=== PATIENT | female | born 2000 | race Two or more races ===

== ENCOUNTER 2020-07-26 10:10 | Outpatient (REF) | payer OTHER, SELFPAY ==
[2020-07-27 11:30] LABS: BV Int Neg Control Negative (Negative); BV Int Pos Control Positive (Positive)
[2020-07-28 14:57] LABS: C. trachomatis RNA TMA NOT DETECTED (NOT DETECTED); N. gonorrhoeae RNA TMA NOT DETECTED (NOT DETECTED)
== END 2020-07-26 10:11 | disposition home or self-care (01) ==
LOC: HO.LAB 10:10
PROVIDERS: Visit Provider Advanced Practice Midwife
DX: Z12.4 Encounter for screening for malignant neoplasm of cervix (principal); Z30.431 Encounter for routine checking of intrauterine contraceptive device; Z20.2 Contact with and (suspected) exposure to infections with a predominantly sexual mode of transmission
CPT/HCPCS: 87480; 87491; 87510; 87591; 87660; 88141; 88142

== ENCOUNTER 2023-02-05 12:58 | Outpatient (REF) | payer OTHER, SELFPAY | END 2023-02-05 12:59 | disposition home or self-care (01) | LOC: HO.LAB 12:58 | PROVIDERS: Visit Provider Advanced Practice Midwife | DX: Z01.419 Encounter for gynecological examination (general) (routine) without abnormal findings (principal); R10.9 Unspecified abdominal pain; R10.2 Pelvic and perineal pain; Z97.5 Presence of (intrauterine) contraceptive device; Z20.2 Contact with and (suspected) exposure to infections with a predominantly sexual mode of transmission | CPT/HCPCS: 0353U; 87480; 87510; 87660 ==

== ENCOUNTER 2023-02-05 13:40 | Outpatient (REF) | payer OTHER, SELFPAY | END 2023-02-05 13:41 | disposition home or self-care (01) | LOC: HO.LNP 13:40 | PROVIDERS: Visit Provider Advanced Practice Midwife | DX: Z01.419 Encounter for gynecological examination (general) (routine) without abnormal findings (principal); R10.2 Pelvic and perineal pain; Z20.2 Contact with and (suspected) exposure to infections with a predominantly sexual mode of transmission | CPT/HCPCS: 88142 ==

== ENCOUNTER 2024-09-06 13:08 | Outpatient (REF) | payer OTHER, SELFPAY ==
--- OUTSIDE RECORDS SUMMARY | 2024-09-06 14:19 | XMS_ITS | Encounter Summary ---
Author Organization [facility] Address [address] [place], [place] [address] Phone Care Team Providers Care Emission Technician Name Role Phone Provider, Aditi LOPEZ Primary Care Provider [phone] Encounter Details Date Type Department Care Team (Late st Contact Info) Description 05/31/[address] [facility] [place] Family Medicine [address] [place] [address] Family Medicine, Physician [address] [place], [place] [phone] Social History Tobacco Use Types Packs/Day Years [...] on filedocumented in this encounter Care Teams Emission Technician Relationship Specialty Start Date End Date Provider, MD Aditi [address] [place] [phone] PCP - General Pediatrics 07/25/21 11/10/22 documented as of this encounter
--- OUTSIDE RECORDS SUMMARY | 2024-09-06 14:19 | XMS_ITS | Encounter Summary ---
Author Organization [facility] Address [address] [place] [address] Phone Care Team Providers Care Automation Architect Name Role Phone Provider, Aditi LOPEZ Primary Care Provider [phone] Encounter Details Date Type Department Care Team (Late st Contact Info) Description 02/15/2016 Documentation [facility] [place] Family Medicine [address] [place] [address] Family Medicine, Physician [address] [place], [place] [phone] Social History Tobacco Use Types Packs/Day Years [...] on filedocumented in this encounter Care Teams Automation Architect Relationship Specialty Start Date End Date Provider, MD Aditi [address] [place] [address] PCP - General Pediatrics 07/25/21 11/10/22 documented as of this encounter
--- OUTSIDE RECORDS SUMMARY | 2024-09-06 14:19 | XMS_ITS | Encounter Summary ---
Author Organization [facility] Address [address] [place], [place] [address] Phone Care Team Providers Care Cashier Office Name Role Phone Provider, Aditi LOPEZ Primary Care Provider [phone] Encounter Details Date Type Department Care Team (Late st Contact Info) Description 05/31/2012 Documentation [facility] [place] [address] [place] [address] Family Medicine, Physician [address] [place], [place] [phone] Social History Tobacco Use Types Packs/Day Years [...] on filedocumented in this encounter Care Teams Cashier Office Relationship Specialty Start Date End Date Provider, MD Aditi [address] [place] [phone] PCP - General Pediatrics 07/25/21 11/10/22 documented as of this encounter
--- OUTSIDE RECORDS SUMMARY | 2024-09-06 14:19 | XMS_ITS | Clinical Summary ---
Author Organization [facility] Address [address] [place] [address] Phone Care Team Providers Care It Network Architect Name Role Phone Unavailable Primary Care Provider [...] Heart disease, No family history of Sudden /[place] under age 55, No family history of [...] complete this topic Procedures * Due to [facility] law, this organization might not be sharing sensitive test results. Procedure Name Priority Date/Time Associated Diagnosis Comments CHLAMYDIA AND GONORRHEA, AMPLIFIED Routine 09/03/2017 11:33 AM EST Amenorrhea from Last 3 Months or Most Recently Relevant to Health Maintenance Results * Due to [facility] law, this organization might not be sharing sensitive test results. * Chlamydia and Gonorrhoea, Amplified (09/03/2017 11:33 AM EST) Pathologist [facility] Chlamydia Trachomatis, DNA Probe NEGATIVE (NEG) [facility] Comment: No Chlamydia Trachomatis RNA detected in this patient's sample ? (REFERENCE RANGE/NORMAL VALUE: NOT DETECTED) ? Note: This test uses departmental secretary- mediated amplification method to detect rRNA from C. Trachomatis URINE GC AMP PROBE NEGATIVE (NEG) [facility] Comment: No Neisseria Gonorrhoeae RNA detected in this patient's sample ? (REFERENCE RANGE/NORMAL VALUE: NOT DETECTED) ? NOTE: This test uses departmental secretary-mediated amplification method to detect rRNA from N.Gonorrhoeae. [...] without risk of sexual abuse. Consult the [facility] if needed. Contact phone number . Therapeutic failure or success cannot be determined with the Aptima Combo2 assay since nucleic acid may persist following appropriate antimicrobial therapy. The Centers for Disease Control and Prevention (CDC) recommends confirmatory retesting using culture or a different nucleic acid amplification test when positive results occur, if indicated. Testing performed or reported by [facility], a Service of [facility], [address] [place] [address] [place] [address] CLIA ??[id number] Alexander Chaidez MD, PhD, Sample Cutter Urine 09/03/2017 11:3 3 AM EST 09/03/2017 11:35 AM EST us Aixa Wright MD LAB MICROBIOLOGY - GENERAL O RDERABLES Final Result [facility] from Last 3 Months or Most Recently Relevant to Health Maintenance
--- OUTSIDE RECORDS SUMMARY | 2024-09-06 14:19 | XMS_ITS | Encounter Summary ---
Author Organization [facility] Address [address] [place] [address] Phone Care Team Providers Care Law Firm Administrator Name Role Phone Provider, Aditi LOPEZ Primary Care Provider [phone] Encounter Details Date Type Department Care Team (Late st Contact Info) Description 04/27/2013 Documentation [facility] [place] Family Medicine [address] [place] [address] Family Medicine, Physician [address] [place], [place] [phone] Social History Tobacco Use Types Packs/Day Years [...] on filedocumented in this encounter Care Teams Law Firm Administrator Relationship Specialty Start Date End Date Provider, MD Aditi [address] [place] [phone] PCP - General Pediatrics 07/25/21 11/10/22 documented as of this encounter
--- OUTSIDE RECORDS SUMMARY | 2024-09-06 14:19 | XMS_ITS | Encounter Summary ---
Author Organization [facility] Address [address] [place] [address] Phone Care Team Providers Care Dough Machine Operator Name Role Phone Provider, Aditi LOPEZ Primary Care Provider [phone] Encounter Details Date Type Department Care Team (Late st Contact Info) Description 02/15/2016 Documentation [facility] [place] [address] [place] [address] Family Medicine, Physician [address] [place], [place] [phone] Social History Tobacco Use Types Packs/Day Years [...] on filedocumented in this encounter Care Teams Dough Machine Operator Relationship Specialty Start Date End Date Provider, MD Aditi [address] [place] [phone] PCP - General Pediatrics 07/25/21 11/10/22 documented as of this encounter
--- OUTSIDE RECORDS SUMMARY | 2024-09-06 14:19 | XMS_ITS | Encounter Summary ---
Author Organization [facility] Address [address] [place] [address] Phone Care Team Providers Care Print Line Operator Name Role Phone Provider, Aditi LOPEZ Primary Care Provider [phone] Encounter Details Date Type Department Care Team (Late st Contact Info) Description 04/27/2013 [place]ation [facility] [place] [address] [place] [address] Family Medicine, Physician [address] [place], [place] [phone] Social History Tobacco Use Types Packs/Day Years [...] on filedocumented in this encounter Care Teams Print Line Operator Relationship Specialty Start Date End Date Provider, MD Aditi [address] [place] [phone] PCP - General Pediatrics 07/25/21 11/10/22 documented as of this encounter
--- OUTSIDE RECORDS SUMMARY | 2024-09-06 14:19 | XMS_ITS | Encounter Summary ---
Author Organization [facility] Address [address] [place] [address] Phone Care Team Providers Care Sde Name Role Phone Provider, Aditi LOPEZ Primary Care Provider [phone] Encounter Details Date Type Department Care Team (Late st Contact Info) Description 04/27/2013 Documentation [facility] [place] [address] [place] [address] Family Medicine, Physician [address] [place], [place] [phone] Social History Tobacco Use Types Packs/Day Years [...] on filedocumented in this encounter Care Teams Sde Relationship Specialty Start Date End Date Provider, MD Aditi [address] [place] [phone] PCP - General Pediatrics 07/25/21 11/10/22 documented as of this encounter
--- OUTSIDE RECORDS SUMMARY | 2024-09-06 14:19 | XMS_ITS | Encounter Summary ---
Author Organization [facility] Address [address] [place], [place] [address] Phone Care Team Providers Care Executive Assistant To President Name Role Phone Provider, Aditi LOPEZ Primary Care Provider [phone] Encounter Details Date Type Department Care Team (Late st Contact Info) Description 05/03/2014 Documentation [facility] [place] Family Medicine [address] [place] [address] Family Medicine, Physician [address] [place], [place] [phone] Social History Tobacco Use Types Packs/Day Years [...] on filedocumented in this encounter Care Teams Executive Assistant To President Relationship Specialty Start Date End Date Provider, MD Aditi [address] [place] [phone] PCP - General Pediatrics 07/25/21 11/10/22 documented as of this encounter
--- OUTSIDE RECORDS SUMMARY | 2024-09-06 14:19 | XMS_ITS | Encounter Summary ---
Author Organization [facility] Address [address] [place] [address] Phone Care Team Providers Care Dam Tender Assistant Name Role Phone Provider, Aditi LOPEZ Primary Care Provider [phone] Encounter Details Date Type Department Care Team (Late st Contact Info) Description 02/15/2016 Documentation [facility] [place] [address] [place] [address] Family Medicine, Physician [address] [place], [place] [phone] Social History Tobacco Use Types Packs/Day Years [...] on filedocumented in this encounter Care Teams Dam Tender Assistant Relationship Specialty Start Date End Date Provider, MD Aditi [address] [place] [phone] PCP - General Pediatrics 07/25/21 11/10/22 documented as of this encounter
--- OUTSIDE RECORDS SUMMARY | 2024-09-06 14:19 | XMS_ITS | Encounter Summary ---
Author Organization [facility] Address [address] [place] [address] Phone Care Team Providers Care Cook Pressure Name Role Phone Provider, Aditi LOPEZ Primary Care Provider [phone] Encounter Details Date Type Department Care Team (Late st Contact Info) Description 04/27/[address] [facility] [place] [address] [place] [address] Family Medicine, Physician [address] [place], [place] [phone] Social History Tobacco Use Types Packs/Day Years [...] on filedocumented in this encounter Care Teams Cook Pressure Relationship Specialty Start Date End Date Provider, MD Aditi [address] [place] [phone] PCP - General Pediatrics 07/25/21 11/10/22 documented as of this encounter
--- OUTSIDE RECORDS SUMMARY | 2024-09-06 14:19 | XMS_ITS | Encounter Summary ---
Author Organization [facility] Address [address] [place], [place] [address] Phone Care Team Providers Care Cigar Bander Hand Name Role Phone Provider, Aditi LOPEZ Primary Care Provider Encounter Details Date Type Department Care Team (Late st Contact Info) Description 05/31/2012 Documentation [facility] [place] Family Medicine [address] [place] [address] Family Medicine, Physician [address] [place], [place] [phone] Social History Tobacco Use Types Packs/Day Years [...] on filedocumented in this encounter Care Teams Cigar Bander Hand Relationship Specialty Start Date End Date Provider, MD Aditi [address] [place] [phone] PCP - General Pediatrics 07/25/21 11/10/22 documented as of this encounter
--- OUTSIDE RECORDS SUMMARY | 2024-09-06 14:19 | XMS_ITS | Encounter Summary ---
Author Organization [facility] Address [address] [place] [address] Phone Care Team Providers Care Shoe Repairer Helper Name Role Phone Provider, Aditi LOPEZ Primary Care Provider [phone] Encounter Details Date Type Department Care Team (Late st Contact Info) Description 03/19/2017 Conversion Encounter [facility] [place] [address] [place] [address] Social History Tobacco Use Types [...] on filedocumented in this encounter Care Teams Shoe Repairer Helper Relationship Specialty Start Date End Date Provider, MD Aditi [address] [place] [phone] PCP - General Pediatrics 07/25/21 11/10/22 documented as of this encounter
--- OUTSIDE RECORDS SUMMARY | 2024-09-06 14:19 | XMS_ITS | Encounter Summary ---
Author Organization [facility] Address [address] [place] [address] Phone Care Team Providers Care Coke Loader Name Role Phone Provider, Aditi LOPEZ Primary Care Provider [phone] Encounter Details Date Type Department Care Team (Late st Contact Info) Description 02/15/2016 Documentation [facility] [place] Family Medicine [address] [place] [address] Family Medicine, Physician [address] [place], [place] [phone] Social History Tobacco Use Types Packs/Day Years [...] on filedocumented in this encounter Care Teams Coke Loader Relationship Specialty Start Date End Date Provider, MD Aditi [address] [place] [phone] PCP - General Pediatrics 07/25/21 11/10/22 documented as of this encounter
[2024-09-07 02:17] LABS: CT PCR NOT DETECTED (Not Detect.); NG PCR NOT DETECTED (Not Detect.)
[2024-09-07 08:37] LABS: Bacterial Vaginosis PCR NEGATIVE (Negative); Candida Group PCR NOT DETECTED (Not Detect); Candida glab krusei PCR NOT DETECTED (Not Detect); Trichomonas vaginalis PCR NOT DETECTED (Not Detect)
== END 2024-09-06 13:09 | disposition home or self-care (01) ==
LOC: HO.LAB 13:08
PROVIDERS: Visit Provider Advanced Practice Midwife
DX: Z30.431 Encounter for routine checking of intrauterine contraceptive device (principal); Z32.02 Encounter for pregnancy test, result negative; N89.8 Other specified noninflammatory disorders of vagina; Z20.2 Contact with and (suspected) exposure to infections with a predominantly sexual mode of transmission
CPT/HCPCS: 81025; 81515; 87491; 87591; 99212

== ENCOUNTER 2024-09-06 13:08 | Outpatient (AMB) | payer OTHER, SELFPAY ==
[2024-09-06 13:13] VITALS: BP 100/62; BMI 24.6
--- NOTE | 2024-09-06 13:13 | A.OFFVIS_ITS ---
Vital Signs 09/06/24 13:13 Height 5 ft 1 in Weight 130 lb BMI 24.6 BP 100/62 Intake Visit Reasons: control consult( IUD removal) Coding Specialist Home Health Required: No Coding Specialist Home Health Services: Coding Specialist Home Health Present Information Interpreted: clinical only Cable Installation Technician: Cable Installation Technician Present Allergies No Known Allergies [No Known Allergies*] Allergy (Verified 09/06/24 13:16) Medication List - Last Reconciled 09/06/24 by Iman Fernandez CNM levonorgestrel (Mirena) intrauterine Is last menstrual period known: No (IUD) HPI HPI control consult( IUD removal): Details: Patient is here because she wants to get the Mirena IUD removed she has had it in for about 5 years it was placed after the of her son by . (she is unclear about the reason for the it had something to do with if she did more in the labor she might faint and then his heartbeat would go down or something like that)-she did have the baby at [facility]. Her boyfriend is locked up she has not been active for the next 5 years. She would like to allow her body to go back to normal and get back to her normal way of being before she had the Mirena put in since she does not have to worry about getting for a long time. 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 She would like to get testing for STIs with the exam. [facility] Family History (Updated 09/06/24 @ 13:58 by Iman Fernandez CNM) Other IUD check up Social History Alcohol intake: current Alcohol intake frequency: holidays/special occasions only Gender identity: Female Female Reproductive History Menstrual Age of Menarche: 12 control method: progestin IUCD Total pregnancies: 1 Full term: 1 Date of last pap smear: 02/10/23 (neg.) History of abnormal pap smear: No Physical Exam Vital Signs: Last Vital Signs BP 100/62 09/06/24 13:13 BMI result Body Mass Index 24.6 Other: Patient is external exam within normal limits vagina is pink and moist her c ervix is nulliparous pink smooth healthy appearing with a clear adherent blob of mucus in the cervical os consistent with hormonal control use. Os was probed with Cytobrush but no string became visible faint reflection in the cervical mucus blob noted so at patient request to try to get the IUD out I did grasp the mucus with ring forceps and had patient cough while I hold but there was no string in the mucus so the IUD could not be removed. External Female Exam: normal external appearance and normal appearance of the urethra Speculum Exam - Vagina: normal appearance of the vagina and normal vaginal discharge Speculum Exam - Cervix: normal appearance of the cervix and Cervical os closed Results AMB Test Urine AMB Test Urine Negative Last Edit by Isaac Zuluaga CMA on 09/06/24 13:53 Results Reviewed Results Reviewed: Name: Rosey Huntley Age/Sex: 22/F Attending: Iman Fernandez CNM : 2000 Submitted by: Iman Fernandez CNM Copies to: MR #: [id number] Status: DEP REF Collected: 02/05/23 Location: [facility] Received: 02/10/23 Interpretation Satisfactory for evaluation. Negative for intraepithelial lesion or malignancy. Clinical Information LMP: Mirena IUD Previous PAP test: 07/2022, Unknown findings Material Received ThinPrep-Cervical Electronically Signed By: LIDA Lim (ASCP) 02/25/23 0813 The Pap Test is a screening procedure with the inherent possibility of both false negative and false positive results. Results should be interpreted in the context of historic and current clinical findings. Reliability of the Pap Test is enhanced by performing the test on a regular repetitive basis. Patient: Rosey Huntley Age/Sex: 22/F MR#: [id number] Page 1 of 1 Assessment & Plan Assessment & Plan (1) IUD check up: Comment: IUD strings currently not visible 02/05/2023. Not visible 09/06/2024 either did attempt to withdraw strings from os with Cytobrush but not visible and not able to remove IUD at her request.; who get ultrasound to verify placement of IUD and when patient desires removal it will be scheduled at hospital office with flight dispatcher. Code(s): Z30.431 - Encounter for routine checking of intrauterine contraceptive device Category: Medical (2) Cervical cancer screening: Comment: 02/05/2023 Pap is negative. Code(s): Z12.4 - Encounter for screening for malignant neoplasm of cervix Category: Medical (3) control counseling: Comment: Counseling done about the hormonal side effects of Mirena IU S and other hormonal methods of control and their side effects. Code(s): Z30.09 - Encounter for other general counseling and advice on contraception Category: Medical (4) Attempted IUD removal, unsuccessful: Comment: No string visible or retrievable from os... See note. Code(s): Z53.8 - Procedure and treatment not carried out for other reasons; Z97.5 - Presence of (intrauterine) contraceptive device Category: Medical Plan Testing done during the visit for gonorrhea chlamydia trichomoniasis bacterial vaginosis and yeast. I did attempt to see if there could be a string hidden within the lab of clear mucus in the cervical os but there was no string visible or reachable. So IUD could not be removed at her request. Reviewed that her experience of decreased mucus secretions and normal sexual response symptoms are all completely normal with the hormonal methods of control from the action of the hormones that cause them to have their control effect. Discussed that when the IUD is removed to not be surprised or alarmed by increase in mucus secretions and by cervical mucus that is signals ovulation and that all those changes will be normal. I am ordering an ultrasound to check on the placement of the IUD and we will have a tele visit after that. After the location of the IUD is ascertained for certain then she can schedule a removal of the IUD with the flight dispatcher that the hospital with a tool to retrieve the string more easily. u/s tv after u/s pt to schedule iud removal w MZ after the above visit w MO'B Orders: Orders 2 AMB HCG Urine Test Today Z32.02 - Encounter for test, result negative Coding Level of Care Code Est Pt Level 3 (99793) Diagnoses IUD check up Z30.431 Cervical cancer screening Z12.4 control counseling Z30.09 Attempted IUD removal, unsuccessful Z53.8; Z97.5 Time Spent (min) 30 Comment See notes
--- OUTSIDE RECORDS SUMMARY | 2024-09-06 13:26 | XMS_ITS | Encounter Summary ---
Author Organization [facility] Address [address] [place] [address] Phone Care Team Providers Care Director Data Processing Name Role Phone Provider, Aditi LOPEZ Primary Care Provider [phone] Encounter Details Date Type Department Care Team (Late st Contact Info) Description 03/19/2017 Conversion Encounter [facility] [place] [address] [place] [address] Social History Tobacco Use Types Packs/Day Years Used Date Smoking Tobacco: Never Comments:Never smoker Comments Unknown Sex and Gender Information Value Date Recorded Sex Assigned at Not on file Legal Sex Female 4:53 PM EDT Gender Identity Not on file Sexual Orientation Not on file documented as of this encounter Plan of Treatment Not on file documented as of this encounter Visit Diagnoses Not on filedocumented in this encounter Care Teams Director Data Processing Relationship Specialty Start Date End Date Provider, MD Aditi [address] [place] [phone] PCP - General Pediatrics 07/25/21 11/10/22 documented as of this encounter
--- OUTSIDE RECORDS SUMMARY | 2024-09-06 13:26 | XMS_ITS | Encounter Summary ---
Author Organization [facility] Address [address] [place] [address] Phone Care Team Providers Care Plow Mechanic Name Role Phone Provider, Aditi LOPEZ Primary Care Provider [phone] Encounter Details Date Type Department Care Team (Late st Contact Info) Description 02/15/2016 Documentation [facility] [place] Family Medicine [address] [place] [address] Family Medicine, Physician [address], [place] [phone] Social History Tobacco Use Types Packs/Day Years [...] on filedocumented in this encounter Care Teams Plow Mechanic Relationship Specialty Start Date End Date Provider, MD Aditi [address] [place] [phone] PCP - General Pediatrics 07/25/21 11/10/22 documented as of this encounter
--- OUTSIDE RECORDS SUMMARY | 2024-09-06 13:26 | XMS_ITS | Encounter Summary ---
Author Organization [facility] Address [address] [place] [address] Phone Care Team Providers Care Crew Leader/Control Room Operator Name Role Phone Provider, Aditi LOPEZ Primary Care Provider [phone] Encounter Details Date Type Department Care Team (Late st Contact Info) Description 04/27/2013 Documentation [facility] Family Medicine [address] [place] [address] Family Medicine, Physician [address], [place] [phone] Social History Tobacco Use Types Packs/Day Years Used Date Smoking Tobacco: Never Assessed Comments Unknown Sex and Gender Information Value Date Recorded Sex Assigned at Not on file Legal Sex Female 4:53 PM EDT Gender Identity Not on file Sexual Orientation Not on file documented as of this encounter Plan of Treatment Not on file documented as of this encounter Visit Diagnoses Not on filedocumented in this encounter Care Teams Crew Leader/Control Room Operator Relationship Specialty Start Date End Date Provider, MD Aditi [address] [place] [phone] PCP - General Pediatrics 07/25/21 11/10/22 documented as of this encounter
--- OUTSIDE RECORDS SUMMARY | 2024-09-06 13:26 | XMS_ITS | Clinical Summary ---
Author Organization [facility] Address [address] [place] [address] Phone Care Team Providers Care Maple Products Maker Name Role Phone Unavailable Primary Care Provider Unavailabl e Allergies No known active allergies Medications ibuprofen 200 MG capsuleIndicatio ns:Pharyngitis, unspecified etiology Take 3 capsules (600 mg total) by mouth every 6 (six) hours as needed for pain or fever (For fever or pain). 120 capsule 2 7 Active medroxyPROGESTER one (DEPO-PROVERA) 150 MG/ML injectionIndicat ions:Amenorrhea Inject 1 mL (150 mg total) into the muscle every 3 (three) months. 1 mL 3 8 Active Resolved Problems Problem Noted Date Diagnosed Date Resolved Date Uncomplicated asthma 12/19/2009 017 Immunizations Name Administration Dates Next Due COVID-19 Pfizer, monovalent, 12+ years 1 COVID-19 Pfizer, felix-sucros e, 12+ years 10/24/2021 DTaP 04/23/2019 DTaP 5 09/02/2003, 1,1999,08/02,1999 H1N1 06/01/2009 HPV, Quadrivalent 04/26/2013,05/28/2012,06/07/20 10 Hep A, ped/adol 02/14/2016,05/02/2014 Hep B, ped/adol 10/31/2000,08/02/2000,06/02/2000 Hib (PRP-T) 10/31/2000, 0,1999,06/02 IPV 09/02/2003, 1,1999,06/02 Influenza Split 04/26/2013,05/28/2012,06/07/2010 Influenza, injectable, quadr ivalent, preservative free 07/14/2017,05/02/2014 Influenza, injectable, trivalent 04/18/2008 MMR 09/02/2003,06/02/2000 Meningococcal Conj (Menactra) MCV4P 02/14/2016,1 08/07/2009 Tdap 06/07/2010 Varicella 06/01/2009,06/02/2000 Family History Relation Name Status Comments Brother Alive Brother: Alive and well Father Alive Father: Alive a nd well Mother Alive Mother: Alive a nd well Other 1 grandmother: Di abetes mellitus Other 2 No family histo ry of Heart disease, No family history of Sudden /MO under age 55, No family history of Dental caries, No family history of Thrombophilia, No family history of CVA (Stroke) Paternal Grandmother Paterna l aunt: Asthma Sister 1 Alive Sister: Alive a nd well, Alive and well, Alive and well Sister 2 Alive Sister: Alive a nd well, Alive and well, Alive and well Sister 3 Alive Sister: Alive a nd well, Alive and well, Alive and well Social History Tobacco Use Types Packs/Day Years Used Date Smoking Tobacco: Never Smokeless Tobacco: Never Tobacco Cessation:Counseling Given: Yes Comments:Never smoker Alcohol Use Standard Drinks/Week Comments No 0 (1 standard drink = 0.6 oz pur e alcohol) Comments No Sex and Gender Information Value Date Recorded Sex Assigned at Not on file Legal Sex Female 4:53 PM EDT Gender Identity Not on file Sexual Orientation Not on file Last Filed Vital Signs Vital Sign Reading Time Taken Comments Blood Pressure 116/73 09/03/2017 10:52 AM EST Pulse 89 09/03/2017 10:52 AM EST Temperature 37.3 ??C (99.2 ??F) 09/03/2017 10:[address] Respiratory Rate - - Oxygen Saturation - - Inhaled Oxygen Concentration - - Weight 59 kg (130 lb) 09/03/2017 10:52 AM EST Height 157.5 cm (5' 2 ) 07/14/2017 2:16 PM EST Body Mass Index 23.78 07/14/2017 2:16 PM EST Plan of Treatment Health Maintenance Due Date Last Done Comments Influenza Vaccines (#1) 2024 07/14/20 17, 05/02/2014, 04/26/2013, Additional history exists COVID-19 Vaccine ( season) 2024 10/24/2021, 07/25/2021 DTaP,Tdap,and Td Vaccines (8 - Td or Tdap) 04/23/2029 04/23/2019, 06/07/2010, 09/02/2003, Additional history exists HIB Vaccines Completed 10/31/2000, 09/04, 1999, Additional history exists Hepatitis B Vaccines Completed 10/31/2000, 08/02/2000, 06/02/2000 IPV Vaccines Completed 09/02/2003, 10/03, 1999, Additional history exists MMR Vaccines Completed 09/02/2003, 06/02/2000 Varicella Vaccines Completed 06/01/2009, 06/02/2000 HPV Vaccines Completed 04/26/2013, 05/04, 06/07/2010 Hepatitis A Vaccines Completed 02/14/2016, 05/02/20 14 Meningococcal Vaccine Completed 02/14/2016, 010 Men B Vaccine Aged Out No longer elig ible based on patient's age to complete this topic Pneumococcal Vaccine Aged Out No long er eligible based on patient's age to complete this topic Procedures * Due to [facility] law, this organization might not be sharing sensitive test results. Procedure Name Priority Date/Time Associated Diagnosis Comments CHLAMYDIA AND GONORRHEA, AMPLIFIED Routine 09/03/2017 11:33 AM EST Amenorrhea from Last 3 Months or Most Recently Relevant to Health Maintenance Results * Due to [facility] law, this organization might not be sharing sensitive test results. * Chlamydia and Gonorrhoea, Amplified (09/03/2017 11:33 AM EST) Pathologist [facility] [place] Chlamydia Trachomatis, DNA Probe NEGATIVE (NEG) [facility] Comment: No Chlamydia Trachomatis RNA detected in this patient's sample ? (REFERENCE RANGE/NORMAL VALUE: NOT DETECTED) ? Note: This test uses market research executive- mediated amplification method to detect rRNA from C. Trachomatis URINE GC AMP PROBE NEGATIVE (NEG) [facility] Comment: No Neisseria Gonorrhoeae RNA detected in this patient's sample ? (REFERENCE RANGE/NORMAL VALUE: NOT DETECTED) ? NOTE: This test uses market research executive-mediated amplification method to detect rRNA from N.Gonorrhoeae. A negative result does not preclude infection. In the case of a negative urine result, testing of an endocervical(female) or urethral (male) specimen is recommended if there is high clinical suspicion of infection. Due to very high sensitivity of Nucleic Acid Amplification Test, false positive results may occur. Therefore, specimen handling is extremely important. In patients in whom the disease is unlikely, additional sample for testing should be considered after an initial positive result. The performance characteristics of this test have not been evaluated in children. The Aptima Combo2 assay is not intended for the evaluation of suspected sexual abuse or for other medico-legal indications. The ordering provider should assess if the patient had consensual sex without risk of sexual abuse. Consult the [facility] if needed. Contact phone number . Therapeutic failure or success cannot be determined with the Aptima Combo2 assay since nucleic acid may persist following appropriate antimicrobial therapy. The Centers for Disease Control and Prevention (CDC) recommends confirmatory retesting using culture or a different nucleic acid amplification test when positive results occur, if indicated. Testing performed or reported by [facility], a Service of [facility], [address] [place] [address] [place] [address] CLIA ??[id number] Alexander Chaidez MD, PhD, Traffic Observer Urine 09/03/2017 11:3 3 AM EST 09/03/2017 11:35 AM EST us Aixa Wright MD LAB MICROBIOLOGY - GENERAL O RDERABLES Final Result [facility] from Last 3 Months or Most Recently Relevant to Health Maintenance
--- OUTSIDE RECORDS SUMMARY | 2024-09-06 13:26 | XMS_ITS | Encounter Summary ---
Author Organization [facility] Address [address] [place], [place] [id number] Phone Care Team Providers Care Fast Food Restaurant Manager Name Role Phone Provider, Aditi LOPEZ Primary Care Provider [phone] Encounter Details Date Type Department Care Team (Late st Contact Info) Description 05/31/2012 Documentation [facility] Family Medicine [address] [place] [address] Family Medicine, Physician [address] [phone] Social History Tobacco Use Types Packs/Day Years [...] on filedocumented in this encounter Care Teams Fast Food Restaurant Manager Relationship Specialty Start Date End Date Provider, MD Aditi [address] [place] [phone] PCP - General Pediatrics 07/25/21 11/10/22 documented as of this encounter
--- OUTSIDE RECORDS SUMMARY | 2024-09-06 13:26 | XMS_ITS | Encounter Summary ---
Author Organization [facility] Address [address] [place], [place] [phone] Phone Care Team Providers Care Publication Director Name Role Phone Provider, Aditi LOPEZ Primary Care Provider [phone] Encounter Details Date Type Department Care Team (Late st Contact Info) Description 05/31/2012 Documentation [facility] [place] Family Medicine [address] [place] [address] Family Medicine, Physician [address] [phone] Social History Tobacco Use Types Packs/Day Years [...] on filedocumented in this encounter Care Teams Publication Director Relationship Specialty Start Date End Date Provider, MD Aditi [address] [place] [phone] PCP - General Pediatrics 07/25/21 11/10/22 documented as of this encounter
--- OUTSIDE RECORDS SUMMARY | 2024-09-06 13:26 | XMS_ITS | Encounter Summary ---
Author Organization [facility] Address [address] [place], [place] [phone] Phone Care Team Providers Care Test Equipment Mechanic Name Role Phone Provider, Aditi LOPEZ Primary Care Provider [phone] Encounter Details Date Type Department Care Team (Late st Contact Info) Description 05/31/2012 Documentation [facility] [place] Family Medicine [address] [place] [address] Family Medicine, Physician [address], [place] [phone] Social History Tobacco Use Types Packs/Day Years [...] on filedocumented in this encounter Care Teams Test Equipment Mechanic Relationship Specialty Start Date End Date Provider, MD Aditi [address] [place] [phone] PCP - General Pediatrics 07/25/21 11/10/22 documented as of this encounter
--- OUTSIDE RECORDS SUMMARY | 2024-09-06 13:26 | XMS_ITS | Encounter Summary ---
Author Organization [facility] Address [address] [place], [place] [address] Phone Care Team Providers Care Supplier Relationship Director Name Role Phone Provider, Aditi LOPEZ Primary Care Provider [phone] Encounter Details Date Type Department Care Team (Late st Contact Info) Description 05/03/2014 Documentation [facility] [place] [address] [place] [address] Family Medicine, Physician [address] [phone] Social History Tobacco Use Types Packs/Day Years [...] on filedocumented in this encounter Care Teams Supplier Relationship Director Relationship Specialty Start Date End Date Provider, MD Aditi [address] [place] [phone] PCP - General Pediatrics 07/25/21 11/10/22 documented as of this encounter
--- OUTSIDE RECORDS SUMMARY | 2024-09-06 13:26 | XMS_ITS | Encounter Summary ---
Author Organization [facility] Address [address] [place] [address] Phone Care Team Providers Care Medical Photographer Name Role Phone Provider, Aditi LOPEZ Primary Care Provider [phone] Encounter Details Date Type Department Care Team (Late st Contact Info) Description 04/27/2013 Documentation [facility] [place] [address] [place] [address] Family Medicine, Physician [address] [phone] Social History Tobacco Use Types Packs/Day Years [...] on filedocumented in this encounter Care Teams Medical Photographer Relationship Specialty Start Date End Date Provider, MD Aditi [address] [place] [phone] PCP - General Pediatrics 07/25/21 11/10/22 documented as of this encounter
--- OUTSIDE RECORDS SUMMARY | 2024-09-06 13:26 | XMS_ITS | Encounter Summary ---
Author Organization [facility] Address [address] [place] [address] Phone Care Team Providers Care Roller Turner Name Role Phone Provider, Aditi LOPEZ Primary Care Provider [phone] Encounter Details Date Type Department Care Team (Late st Contact Info) Description 02/15/2016 Documentation [facility] [place] Family Medicine [address] [place] [address] Family Medicine, Physician [address] [place], [place] [phone] Social History Tobacco Use Types Packs/Day Years [...] on filedocumented in this encounter Care Teams Roller Turner Relationship Specialty Start Date End Date Provider, MD Aditi [address] [place] [phone] PCP - General Pediatrics 07/25/21 11/10/22 documented as of this encounter
--- OUTSIDE RECORDS SUMMARY | 2024-09-06 13:26 | XMS_ITS | Encounter Summary ---
Author Organization [facility] Address [address] [place] [address] Phone Care Team Providers Care Equipment Tester Name Role Phone Provider, Aditi LOPEZ Primary Care Provider [phone] Encounter Details Date Type Department Care Team (Late st Contact Info) Description 02/15/2016 Documentation [facility] [place] Family Medicine [address] [place] [address] Family Medicine, Physician [address], [place] [phone] Social History Tobacco Use Types Packs/Day Years [...] on filedocumented in this encounter Care Teams Equipment Tester Relationship Specialty Start Date End Date Provider, MD Aditi [address] [place] [phone] PCP - General Pediatrics 07/25/21 11/10/22 documented as of this encounter
--- OUTSIDE RECORDS SUMMARY | 2024-09-06 13:26 | XMS_ITS | Encounter Summary ---
Author Organization [facility] Address [address] [place] [address] Phone Care Team Providers Care Brim Ironer Hand Name Role Phone Provider, Aditi LOPEZ Primary Care Provider Encounter Details Date Type Department Care Team (Late st Contact Info) Description 04/27/2013 Documentation [facility] [place] [address] [place] [address] Family Medicine, Physician [address], [place] [phone] Social History Tobacco Use Types Packs/Day Years [...] on filedocumented in this encounter Care Teams Brim Ironer Hand Relationship Specialty Start Date End Date Provider, MD Aditi [address] [place] [phone] PCP - General Pediatrics 07/25/21 11/10/22 documented as of this encounter
--- OUTSIDE RECORDS SUMMARY | 2024-09-06 13:26 | XMS_ITS | Encounter Summary ---
Author Organization [facility] Address [address] [place] [address] Phone Care Team Providers Care Fire Prevention Engineer Name Role Phone Provider, Aditi LOPEZ Primary Care Provider [phone] Encounter Details Date Type Department Care Team (Late st Contact Info) Description 02/15/2016 Documentation [facility] [place] Family Medicine [address] [place] [address] Family Medicine, Physician [address] [place], [place] [phone] Social History Tobacco Use Types Packs/Day Years [...] on filedocumented in this encounter Care Teams Fire Prevention Engineer Relationship Specialty Start Date End Date Provider, MD Aditi [address] [place] [address] PCP - General Pediatrics 07/25/21 11/10/22 documented as of this encounter
--- OUTSIDE RECORDS SUMMARY | 2024-09-06 13:26 | XMS_ITS | Encounter Summary ---
Author Organization [facility] Address [address] [place] [address] Phone Care Team Providers Care Irrigator Head Name Role Phone Provider, Aditi LOPEZ Primary Care Provider [phone] Encounter Details Date Type Department Care Team (Late st Contact Info) Description 04/27/2013 Documentation [facility] [place] Family Medicine [address] [place] [address] Family Medicine, Physician [address] [place], [place] [phone] Social History Tobacco Use Types Packs/Day Years [...] on filedocumented in this encounter Care Teams Irrigator Head Relationship Specialty Start Date End Date Provider, MD Aditi [address] [place] [phone] PCP - General Pediatrics 07/25/21 11/10/22 documented as of this encounter
== END 2024-09-06 13:52 | disposition home or self-care (01) ==
PROVIDERS: Visit Provider Advanced Practice Midwife
DX: Z30.431 Encounter for routine checking of intrauterine contraceptive device (principal); Z32.02 Encounter for pregnancy test, result negative
CPT/HCPCS: 99213

== ENCOUNTER 2024-10-04 10:55 | Outpatient (REF) | payer OTHER, SELFPAY ==
--- NOTE | ~2024-10-04 | US_ITS ---
EXAMINATION: US PELVIS CLINICAL INFORMATION: Encounter for routine checking of intrauterine contraceptive device. COMPARISON: August 13, 2019. TECHNIQUE: Ultrasound of the pelvis is performed using both transabdominal and transvaginal transducers along with Doppler. Transvaginal imaging is performed due to inadequate visualization transabdominally. FINDINGS: Uterus: The uterus is anteversion flexion and measures 8 x 3 x 4 cm. There is an intrauterine contraceptive device in place within the proper uterine cavity. There is trace of fluid in the endocervical canal. Cervix demonstrates no gross lesions. The double wall endometrial thickness is not evaluated secondary to contraceptive device.. The uterus is smooth in contour and has normal myometrial echogenicity. No visible fibroid. Adnexa: Both ovaries are visualized. There is normal color flow to the adnexa. There is no ovarian torsion. There is no pelvic ascites or fluid collection. Right ovary measures 5 x 3 x 4 cm. Volume: 34 cc. There is a 3.4 cm septated well-defined anechoic lesion without flow on color Doppler interrogation. Left ovary measures 3 x 2 x 2 cm. Volume: 5 cc. No solid or cystic lesion. US/US pelvic and transvaginal IMPRESSION: Intrauterine contraceptive device in satisfactory position. No ovarian torsion. 3.4 cm septated cyst, right ovary. Electronically signed by: Sandeep Muniz MD 10/05/2024 08:50 AM TAHMINA RODRIGEZ
--- OUTSIDE RECORDS SUMMARY | 2024-10-04 13:34 | XMS_ITS | Encounter Summary ---
Author Organization [facility] Address [address] [place], [place] [address] Phone Care Team Providers Care Finger Cobbler Name Role Phone Provider, Aditi LOPEZ Primary Care Provider [phone] Encounter Details Date Type Department Care Team (Late st Contact Info) Description 04/27/2013 Documentation [facility] [place] [address] [place] [address] Family Medicine, Physician [address] [place], [place] [phone] Social History Tobacco Use Types Packs/Day Years [...] on filedocumented in this encounter Care Teams Finger Cobbler Relationship Specialty Start Date End Date Provider, MD Aditi [address] [place] [phone] PCP - General Pediatrics 07/25/21 11/10/22 documented as of this encounter
--- OUTSIDE RECORDS SUMMARY | 2024-10-04 13:34 | XMS_ITS | Encounter Summary ---
Author Organization [facility] Address [address] [place] [address] Phone Care Team Providers Care Abrading Machine Tender Name Role Phone Provider, Aditi LOPEZ Primary Care Provider [phone] Encounter Details Date Type Department Care Team (Late st Contact Info) Description 02/15/2016 Documentation [facility] [place] Family Medicine [address] [place] [address] Family Medicine, Physician [address] [place], [place] [phone] Social History Tobacco Use Types Packs/Day Years [...] on filedocumented in this encounter Care Teams Abrading Machine Tender Relationship Specialty Start Date End Date Provider, MD Aditi [address] [place] [phone] PCP - General Pediatrics 07/25/21 11/10/22 documented as of this encounter
--- OUTSIDE RECORDS SUMMARY | 2024-10-04 13:34 | XMS_ITS | Encounter Summary ---
Author Organization [facility] Address [address] [place], [place] [address] Phone Care Team Providers Care Tomato Pulper Operator Name Role Phone Provider, Aditi LOPEZ Primary Care Provider [phone] Encounter Details Date Type Department Care Team (Late st Contact Info) Description 05/03/2014 Documentation [facility] [place] Family Medicine [address] [place] [address] Family Medicine, Physician [address] [place], [place] [phone] Social History Tobacco Use Types Packs/Day Years [...] on filedocumented in this encounter Care Teams Tomato Pulper Operator Relationship Specialty Start Date End Date Provider, MD Aditi [address] [place] [phone] PCP - General Pediatrics 07/25/21 11/10/22 documented as of this encounter
--- OUTSIDE RECORDS SUMMARY | 2024-10-04 13:34 | XMS_ITS | Encounter Summary ---
Author Organization [facility] Address [address] [place], [place] [address] Phone Care Team Providers Care Shipyard Laborer Name Role Phone Provider, Aditi LOPEZ Primary Care Provider [phone] Encounter Details Date Type Department Care Team (Late st Contact Info) Description 05/31/2012 [place] [facility] [place] [address] [place] [address] Family Medicine, Physician [address] [place], [place] [phone] Social History Tobacco Use Types Packs/Day Years [...] on filedocumented in this encounter Care Teams Shipyard Laborer Relationship Specialty Start Date End Date Provider, MD Aditi [address] [place] [phone] PCP - General Pediatrics 07/25/21 11/10/22 documented as of this encounter
--- OUTSIDE RECORDS SUMMARY | 2024-10-04 13:34 | XMS_ITS | Encounter Summary ---
Author Organization [facility] Address [address] [place] [address] Phone Care Team Providers Care Professor Of Languages Name Role Phone Provider, Aditi LOPEZ Primary Care Provider [phone] Encounter Details Date Type Department Care Team (Late st Contact Info) Description 02/15/2016 [place]ation [facility] [place] [address] [place] [address] Family Medicine, Physician [address] [place], [place] [phone] Social History Tobacco Use Types Packs/Day Years [...] on filedocumented in this encounter Care Teams Professor Of Languages Relationship Specialty Start Date End Date Provider, MD Aditi [address] [place] [phone] PCP - General Pediatrics 07/25/21 11/10/22 documented as of this encounter
--- OUTSIDE RECORDS SUMMARY | 2024-10-04 13:34 | XMS_ITS | Clinical Summary ---
Author Organization [facility] Address [address] [place] [address] Phone Care Team Providers Care Manager Financial Services Name Role Phone Unavailable Primary Care Provider [...] Resolved Date Uncomplicated asthma 12/19/2009 017 Immunizations Immunization Administration Dates Next Due COVID-19 Pfizer, monovalent, [...] Heart disease, No family history of Sudden /[place] under age 55, No family history of [...] complete this topic Procedures * Due to [facility] law, this organization might not be sharing sensitive test results. Procedure Name Priority Date/Time Associated Diagnosis Comments CHLAMYDIA AND GONORRHEA, AMPLIFIED Routine 09/03/2017 11:33 AM EST Amenorrhea from Last 3 Months or Most Recently Relevant to Health Maintenance Results * Due to [facility] law, this organization might not be sharing sensitive test results. * Chlamydia and Gonorrhoea, Amplified (09/03/2017 11:33 AM EST) Pathologist [facility] Chlamydia Trachomatis, DNA Probe NEGATIVE (NEG) [facility] Comment: No Chlamydia Trachomatis RNA detected in this patient's sample ? (REFERENCE RANGE/NORMAL VALUE: NOT DETECTED) ? Note: This test uses rn concurrent review- mediated amplification method to detect rRNA from C. Trachomatis URINE GC AMP PROBE NEGATIVE (NEG) [facility] Comment: No Neisseria Gonorrhoeae RNA detected in this patient's sample ? (REFERENCE RANGE/NORMAL VALUE: NOT DETECTED) ? NOTE: This test uses rn concurrent review-mediated amplification method to detect rRNA from N.Gonorrhoeae. [...] without risk of sexual abuse. Consult the [facility] if needed. Contact phone number . Therapeutic failure or success cannot be determined with the Aptima Combo2 assay since nucleic acid may persist following appropriate antimicrobial therapy. The Centers for Disease Control and Prevention (CDC) recommends confirmatory retesting using culture or a different nucleic acid amplification test when positive results occur, if indicated. Testing performed or reported by [facility], a Service of [facility], [address] [place] [address] [place] [address] CLIA ??[id number] Alexander Chaidez MD, PhD, Dining Room Host Urine 09/03/2017 11:3 3 AM EST 09/03/2017 11:35 AM EST us Aixa Wright MD LAB MICROBIOLOGY - GENERAL O RDERABLES Final Result [facility] from Last 3 Months or Most Recently Relevant to Health Maintenance
--- OUTSIDE RECORDS SUMMARY | 2024-10-04 13:34 | XMS_ITS | Encounter Summary ---
Author Organization [facility] Address [address] [place] [address] Phone Care Team Providers Care Vault Person Name Role Phone Provider, Aditi LOPEZ Primary Care Provider [phone] Encounter Details Date Type Department Care Team (Late st Contact Info) Description 03/19/2017 Conversion Encounter [facility] [place] [address] [place] [address] Social History Tobacco Use Types [...] on filedocumented in this encounter Care Teams Vault Person Relationship Specialty Start Date End Date Provider, MD Aditi [address] [place] [address] PCP - General Pediatrics 07/25/21 11/10/22 documented as of this encounter
--- OUTSIDE RECORDS SUMMARY | 2024-10-04 13:34 | XMS_ITS | Encounter Summary ---
Author Organization [facility] Address [address] [place] [address] Phone Care Team Providers Care Key Ringer Name Role Phone Provider, Aditi LOPEZ Primary Care Provider [phone] Encounter Details Date Type Department Care Team (Late st Contact Info) Description 02/15/2016 Documentation [facility] [place] Family Medicine [address] [place] [address] Family Medicine, Physician [address] [place], [place] [phone] Social History Tobacco Use Types Packs/Day Years [...] on filedocumented in this encounter Care Teams Key Ringer Relationship Specialty Start Date End Date Provider, MD Aditi [address] [place] [phone] PCP - General Pediatrics 07/25/21 11/10/22 documented as of this encounter
--- OUTSIDE RECORDS SUMMARY | 2024-10-04 13:34 | XMS_ITS | Encounter Summary ---
Author Organization [facility] Address [address] [place] [address] Phone Care Team Providers Care Patch Press Operator Name Role Phone Provider, Aditi LOPEZ Primary Care Provider [phone] Encounter Details Date Type Department Care Team (Late st Contact Info) Description 02/15/2016 [place]ation [facility] [place] [address] [place] [address] Family Medicine, Physician [address] [place], [place] [phone] Social History Tobacco Use Types [...] on filedocumented in this encounter Care Teams Patch Press Operator Relationship Specialty Start Date End Date Provider, MD Aditi [address] [place] [phone] PCP - General Pediatrics 07/25/21 11/10/22 documented as of this encounter
--- OUTSIDE RECORDS SUMMARY | 2024-10-04 13:34 | XMS_ITS | Encounter Summary ---
Author Organization [facility] Address [address] [place], [place] [address] Phone Care Team Providers Care Scaffold Setter Name Role Phone Provider, Aditi LOPEZ Primary Care Provider [phone] Encounter Details Date Type Department Care Team (Late st Contact Info) Description 04/27/2013 Documentation [facility] [place] [address] [place] [address] Family Medicine, Physician [address] [place] [phone] Social History Tobacco Use Types Packs/Day Years [...] on filedocumented in this encounter Care Teams Scaffold Setter Relationship Specialty Start Date End Date Provider, MD Aditi [address] [place] [phone] PCP - General Pediatrics 07/25/21 11/10/22 documented as of this encounter
--- OUTSIDE RECORDS SUMMARY | 2024-10-04 13:34 | XMS_ITS | Encounter Summary ---
Author Organization [facility] Address [address] [place], [place] [address] Phone Care Team Providers Care Medical Records Assistant Name Role Phone Provider, Aditi LOPEZ Primary Care Provider [phone] Encounter Details Date Type Department Care Team (Late st Contact Info) Description 05/31/2012 [place]ation [facility] [place] [address] [place] [address] Family Medicine, Physician [address] [place] [phone] Social History Tobacco Use Types Packs/Day Years [...] filedocumented in this encounter Care Teams Medical Records Assistant Relationship Specialty Start Date End Date Provider, MD Aditi [address] [place] [phone] PCP - General Pediatrics 07/25/21 11/10/22 documented as of this encounter
--- OUTSIDE RECORDS SUMMARY | 2024-10-04 13:34 | XMS_ITS | Encounter Summary ---
Author Organization [facility] Address [address] [place], [place] [address] Phone Care Team Providers Care Wholesale Buyer Name Role Phone Provider, Aditi LOPEZ Primary Care Provider Encounter Details Date Type Department Care Team (Late st Contact Info) Description 04/27/2013 Documentation [facility] [place] Medicine [address] [place] [address] Family Medicine, Physician [address] [place] [phone] Social History Tobacco Use Types Packs/Day Years [...] on filedocumented in this encounter Care Teams Wholesale Buyer Relationship Specialty Start Date End Date Provider, MD Aditi [address] [place] [phone] PCP - General Pediatrics 07/25/21 11/10/22 documented as of this encounter
--- OUTSIDE RECORDS SUMMARY | 2024-10-04 13:34 | XMS_ITS | Encounter Summary ---
Author Organization [facility] Address [address] [place], [place] [address] Phone Care Team Providers Care Computer Forwarding System Markup Clerk Name Role Phone Provider, Aditi LOPEZ Primary Care Provider [phone] Encounter Details Date Type Department Care Team (Late st Contact Info) Description 05/31/2012 Documentation [facility] [place] [address] [place] [address] Family Medicine, Physician [address] [place], [place] [phone] Social History Tobacco Use Types Packs/Day Years [...] on filedocumented in this encounter Care Teams Computer Forwarding System Markup Clerk Relationship Specialty Start Date End Date Provider, MD Aditi [address] [place] [phone] PCP - General Pediatrics 07/25/21 11/10/22 documented as of this encounter
--- OUTSIDE RECORDS SUMMARY | 2024-10-04 13:34 | XMS_ITS | Encounter Summary ---
Author Organization [facility] Address [address] [place], [place] [address] Phone Care Team Providers Care Button Breaker Name Role Phone Provider, Aditi LOPEZ Primary Care Provider [phone] Encounter Details Date Type Department Care Team (Late st Contact Info) Description 04/27/2013 Documentation [facility] [place] Family Medicine [address] [place] [address] Family Medicine, Physician [address] [place], [place] [phone] Social History Tobacco Use Types Packs/Day Years [...] on filedocumented in this encounter Care Teams Button Breaker Relationship Specialty Start Date End Date Provider, MD Aditi [address] [place] [phone] PCP - General Pediatrics 07/25/21 11/10/22 documented as of this encounter
== END 2024-10-04 10:56 | disposition home or self-care (01) ==
LOC: HO.US 10:55
PROVIDERS: Visit Provider Advanced Practice Midwife
DX: Z30.431 Encounter for routine checking of intrauterine contraceptive device (principal)
CPT/HCPCS: 76830; 76856

== ENCOUNTER → 2024-10-04 10:59 | Outpatient (BNV) | payer OTHER, SELFPAY | PROVIDERS: Visit Provider Radiology Diagnostic Radiology | DX: N83.291 Other ovarian cyst, right side (principal) | CPT/HCPCS: 76830; 76856 ==

== ENCOUNTER 2024-11-29 15:16 | Outpatient (AMB) | payer MEDICAID, SELFPAY ==
--- NOTE | 2024-11-29 15:13 | A.OFFVIS_ITS ---
Vital Signs 11/29/24 15:14 Height 5 ft 1 in Weight 133 lb BMI 25.1 BP 102/62 Blood Pressure Location Lt brachial Position Sitting Intake Visit Reasons: u/s followup Allergies No Known Allergies [No Known Allergies*] Allergy (Verified 09/06/24 13:16) Medication List - Last Reconciled 11/29/24 by Iman Fernandez CNM levonorgestrel (Mirena) intrauterine HPI HPI u/s followup: Details: This is a visit for Follow-up of an ultrasound that she had done to make sure that her IUD is in place. The string could not be retrieved from her cervical os at that visit she was contemplating removal of the IUD. She does not get periods. She says that right now she has been on a celebrate journey and she is feeling very good about herself and things she is appreciating be fact that she is feeling like she is taking care of herself and working towards a career and feeling strong and healthy and working towards building a secure life for her and her son. She said she was talking to her mother and her mother suggested she just leave the IUD in for now if it is not bothering her as it seems to be working and she is not getting periods and it has been in for about 5 years, childbearing is not in her plans right now and neither is being involved with anybody. [facility] Family History (Updated 09/06/24 @ 13:58 by Iman Fernandez CNM) Other IUD check up Social History (Reviewed 09/06/24 @ 13:17 by Isaac Zuluaga [facility]) Alcohol intake: current Alcohol intake frequency: holidays/special occasions only Gender identity: Female Female Reproductive History Menstrual Age of Menarche: 12 control method: progestin IUCD Total pregnancies: 1 Full term: 1 Number of Living Children: 1 History of abnormal pap smear: No History of STI: No Physical Exam Vital Signs: Last Vital Signs BP 102/62 11/29/24 15:14 BMI result Body Mass Index 25.1 Results Reviewed Results Reviewed: [address] [address] Ultrasound Report Signed Patient: Rosey Huntley MR#: [id number] : 2000 Acct:[id number] Age/Sex: 24 / F ADM Date: 10/04/24 Loc: HO.US Attending Dr: Iman Fernandez CNM Ordering Physician: Iman Fernandez CNM Date of Service: 10/04/24 Procedure(s): US pelvic and transvaginal Accession Number(s): [id number] cc: Iman Fernandez CNM~ EXAMINATION: US PELVIS CLINICAL INFORMATION: Encounter for routine checking of intrauterine contraceptive device. COMPARISON: August 13, 2019. TECHNIQUE: Ultrasound of the pelvis is performed using both transabdominal and transvaginal transducers along with Doppler. Transvaginal imaging is performed due to inadequate visualization transabdominally. FINDINGS: Uterus: The uterus is anteversion flexion and measures 8 x 3 x 4 cm. There is an intrauterine contraceptive device in place within the proper uterine cavity. There is trace of fluid in the endocervical canal. Cervix demonstrates no gross lesions. The double wall endometrial thickness is not evaluated secondary to contraceptive device.. The uterus is smooth in contour and has normal myometrial echogenicity. No visible fibroid. Adnexa: Both ovaries are visualized. There is normal color flow to the adnexa. There is no ovarian torsion. There is no pelvic ascites or fluid collection. Right ovary measures 5 x 3 x 4 cm. Volume: 34 cc. There is a 3.4 cm septated well-defined anechoic lesion without flow on color Doppler interrogation. Left ovary measures 3 x 2 x 2 cm. Volume: 5 cc. No solid or cystic lesion. US/US pelvic and transvaginal IMPRESSION: Intrauterine contraceptive device in satisfactory position. No ovarian torsion. 3.4 cm septated cyst, right ovary. Electronically signed by: Sandeep Muniz MD 10/05/2024 08:50 AM EST Dictated By: Sandeep Pappas MD Signed By: <Electronically signed by Sandeep Bejarano MD in OV> 10/05/24 0850 DD/ 1110 TD/TT: 10/04/24 1124 Orderlies Teacher: Name: Rosey Huntley Age/Sex: 22/F Attending: Iman Fernandez CNM : 2000 Submitted by: Iman Fernandez CNM Copies to: MR #: [id number] Status: DEP REF Collected: 02/05/23 Location: [facility] Received: 02/10/23 Interpretation Satisfactory for evaluation. Negative for intraepithelial lesion or malignancy. Clinical Information LMP: Mirena IUD Previous PAP test: 07/2022, Unknown findings Material Received ThinPrep-Cervical Electronically Signed By: LIDA Lim (ASCP) 02/25/23 0813 The Pap Test is a screening procedure with the inherent possibility of both false negative and false positive results. Results should be interpreted in the context of historic and current clinical findings. Reliability of the Pap Test is enhanced by performing the test on a regular repetitive basis. Patient: Rosey Huntley Age/Sex: 22/F MR#: [id number] Page 1 of 1 Assessment & Plan Assessment & Plan (1) IUD check up: Comment: IUD strings currently not visible 02/05/2023. Not visible 09/06/2024 either did attempt to withdraw strings from os with Cytobrush but not visible and not able to remove IUD at her request.; who get ultrasound to verify placement of IUD and when patient desires removal it will be scheduled at hospital office with certified medical coder. Code(s): Z30.431 - Encounter for routine checking of intrauterine contraceptive device Category: Medical (2) control counseling: Comment: Counseling done about the hormonal side effects of Mirena IU S and other hormonal methods of control and their side effects. Code(s): Z30.09 - Encounter for other general counseling and advice on contraception Category: Medical (3) Ovarian cyst: Comment: Septated cyst seen on ultrasound from October 2024 follow-up with a repeat ultrasound and see her after. Code(s): N83.209 - Unspecified ovarian cyst, unspecified side Category: Medical Plan She is feeling very good about her current celibate journey, and has decided to leave the IUD in now for now as it is not bothering her. 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 She stays active with her 5-year-old son. Discussed the IUD how long it can be used for control that if her periods return and she is in need of control she may want to consider replacement as it might be a sign that it is wearing off its effectiveness. Also discussed the benefits of focusing ones energy towards health and the rest of lifes obligations and opportunities. I am going to order a follow-up ultrasound to check on septated ovarian cyst and we will have a visit after that. Her next Pap smear would be due next year with her annual exam. RTC 1 year for annual with Pap smear Pelvic ultrasound to follow-up on previous A follow-up visit soon after the ultrasound Orders: Orders US pelvic and transvaginal 2 Months N83.209 - Unspecified ovarian cyst, unspecified side, Z30.09 - Encounter for other general counseling and advice on contraception, Z30.431 - Encounter for routine checking of intrauterine contraceptive device Coding Level of Care Code Est Pt Level 3 (94002) Diagnoses IUD check up Z30.431 control counseling Z30.09 Ovarian cyst N83.209
[2024-11-29 15:14] VITALS: BP 102/62; BMI 25.1
--- OUTSIDE RECORDS SUMMARY | 2024-11-29 18:10 | XMS_ITS | Encounter Summary ---
Author Organization [facility] Address [address] [place], [place] [address] Phone Care Team Providers Care Special Effects Designer Name Role Phone Provider, Aditi LOPEZ Primary Care Provider [phone] Encounter Details Date Type Department Care Team (Late st Contact Info) Description 04/27/2013 Documentation [facility] [place] Family Medicine [address] [place] [address] Family Medicine, Physician [address] [place], [place] [phone] Social History Tobacco Use Types Packs/Day Years [...] on filedocumented in this encounter Care Teams Special Effects Designer Relationship Specialty Start Date End Date Provider, MD Aditi [address] [place] [phone] PCP - General Pediatrics 07/25/21 11/10/22 documented as of this encounter
--- OUTSIDE RECORDS SUMMARY | 2024-11-29 18:10 | XMS_ITS | Encounter Summary ---
Author Organization [facility] Address [address] [place], [place] [address] Phone Care Team Providers Care Store Lead Name Role Phone Provider, Aditi LOPEZ Primary Care Provider [phone] Encounter Details Date Type Department Care Team (Late st Contact Info) Description 04/27/2013 Documentation [facility] [place] [address] [place] [address] Family Medicine, Physician [address], [place] [phone] Social History Tobacco Use Types Packs/Day Years [...] on filedocumented in this encounter Care Teams Store Lead Relationship Specialty Start Date End Date Provider, MD Aditi [address] [place] [phone] PCP - General Pediatrics 07/25/21 11/10/22 documented as of this encounter
--- OUTSIDE RECORDS SUMMARY | 2024-11-29 18:10 | XMS_ITS | Encounter Summary ---
Author Organization [facility] Address [address] [place], [place] [address] Phone Care Team Providers Care Plumbing Service Technician Name Role Phone Provider, Aditi LOPEZ Primary Care Provider [phone] Encounter Details Date Type Department Care Team (Late st Contact Info) Description 05/31/2012 Documentation [facility] [place] Family Medicine [address] [place] [address] Family Medicine, Physician [address] [place], [place] [phone] Social History Tobacco Use Types Packs/Day Years [...] on filedocumented in this encounter Care Teams Plumbing Service Technician Relationship Specialty Start Date End Date Provider, MD Aditi [address] [place] [phone] PCP - General Pediatrics 07/25/21 11/10/22 documented as of this encounter
--- OUTSIDE RECORDS SUMMARY | 2024-11-29 18:10 | XMS_ITS | Clinical Summary ---
Author Organization [facility] Address [address] [place] [address] Phone Care Team Providers Care Welt Insole Channeler Name Role Phone Unavailable Primary Care Provider [...] Heart disease, No family history of Sudden /VA under age 55, No family history of [...] complete this topic Procedures * Due to [facility] law, this organization might not be sharing sensitive test results. Procedure Name Priority Date/Time Associated Diagnosis Comments CHLAMYDIA AND GONORRHEA, AMPLIFIED Routine 09/03/2017 11:33 AM EST Amenorrhea from Last 3 Months or Most Recently Relevant to Health Maintenance Results * Due to [facility] law, this organization might not be sharing sensitive test results. * Chlamydia and Gonorrhoea, Amplified (09/03/2017 11:33 AM EST) Pathologist [facility] Chlamydia Trachomatis, DNA Probe NEGATIVE (NEG) [facility] Comment: No Chlamydia Trachomatis RNA detected in this patient's sample ? (REFERENCE RANGE/NORMAL VALUE: NOT DETECTED) ? Note: This test uses laborer driver- mediated amplification method to detect rRNA from C. Trachomatis URINE GC AMP PROBE NEGATIVE (NEG) [facility] Comment: No Neisseria Gonorrhoeae RNA detected in this patient's sample ? (REFERENCE RANGE/NORMAL VALUE: NOT DETECTED) ? NOTE: This test uses laborer driver-mediated amplification method to detect rRNA from N.Gonorrhoeae. [...] without risk of sexual abuse. Consult the [facility] if needed. Contact phone number . Therapeutic failure or success cannot be determined with the Aptima Combo2 assay since nucleic acid may persist following appropriate antimicrobial therapy. The Centers for Disease Control and Prevention (CDC) recommends confirmatory retesting using culture or a different nucleic acid amplification test when positive results occur, if indicated. Testing performed or reported by [facility], a Service of [facility], [address] [place] [address] [place] [address] CLIA ??[id number] Alexander Chaidez MD, PhD, Continuity Clerk Urine 09/03/2017 11:3 3 AM EST 09/03/2017 11:35 AM EST us Aixa Wright MD LAB MICROBIOLOGY - GENERAL O RDERABLES Final Result [facility] from Last 3 Months or Most Recently Relevant to Health Maintenance
--- OUTSIDE RECORDS SUMMARY | 2024-11-29 18:10 | XMS_ITS | Encounter Summary ---
Author Organization [facility] Address [address] [place] [address] Phone Care Team Providers Care Technical Business Analyst Name Role Phone Provider, Aditi LOPEZ Primary Care Provider [phone] Encounter Details Date Type Department Care Team (Late st Contact Info) Description 02/15/2016 Documentation [facility] [place] [address] [place] [address] Family Medicine, Physician [address] [place], [place] [phone] Social History Tobacco Use Types Packs/Day Years [...] on filedocumented in this encounter Care Teams Technical Business Analyst Relationship Specialty Start Date End Date Provider, MD Aditi [address] [place] [phone] PCP - General Pediatrics 07/25/21 11/10/22 documented as of this encounter
--- OUTSIDE RECORDS SUMMARY | 2024-11-29 18:10 | XMS_ITS | Encounter Summary ---
Author Organization [facility] Address [address] [place], [place] [address] Phone Care Team Providers Care Cheese Factory Worker Name Role Phone Provider, Aditi LOPEZ Primary Care Provider Encounter Details Date Type Department Care Team (Late st Contact Info) Description 04/27/2013 Documentation [facility] [place] [address] [place] [address] Family Medicine, Physician [address] [place], [place] [phone] Social History Tobacco Use Types Packs/Day Years [...] on filedocumented in this encounter Care Teams Cheese Factory Worker Relationship Specialty Start Date End Date Provider, MD Aditi [address] [place] [phone] PCP - General Pediatrics 07/25/21 11/10/22 documented as of this encounter
--- OUTSIDE RECORDS SUMMARY | 2024-11-29 18:10 | XMS_ITS | Encounter Summary ---
Author Organization [facility] Address [address] [place] [address] Phone Care Team Providers Care Cathodic Protection Technician Name Role Phone Provider, Aditi LOPEZ Primary Care Provider [phone] Encounter Details Date Type Department Care Team (Late st Contact Info) Description 02/15/2016 Documentation [facility] [place] [address] [place] [address] Family Medicine, Physician [address] [place], [place] [phone] Social History Tobacco Use Types Packs/Day Years [...] on filedocumented in this encounter Care Teams Cathodic Protection Technician Relationship Specialty Start Date End Date Provider, MD Aditi [address] [place] [phone] PCP - General Pediatrics 07/25/21 11/10/22 documented as of this encounter
--- OUTSIDE RECORDS SUMMARY | 2024-11-29 18:10 | XMS_ITS | Encounter Summary ---
Author Organization [facility] Address [address] [place], [place] [address] Phone Care Team Providers Care Digital Media Planner Name Role Phone Provider, Aditi LOPEZ Primary Care Provider [phone] Encounter Details Date Type Department Care Team (Late st Contact Info) Description 04/27/2013 Documentation [facility] [place] [address] [place] [address] Family Medicine, Physician [address] [place], [place] [phone] Social History Tobacco Use Types Packs/Day Years [...] on filedocumented in this encounter Care Teams Digital Media Planner Relationship Specialty Start Date End Date Provider, MD Aditi [address] [place] [phone] PCP - General Pediatrics 07/25/21 11/10/22 documented as of this encounter
--- OUTSIDE RECORDS SUMMARY | 2024-11-29 18:10 | XMS_ITS | Encounter Summary ---
Author Organization [facility] Address [address] [place] [address] Phone Care Team Providers Care Windchill Administrator Name Role Phone Provider, Aditi LOPEZ Primary Care Provider [phone] Encounter Details Date Type Department Care Team (Late st Contact Info) Description 02/15/2016 Documentation [facility] [place] Family Medicine [address] [place] [address] Family Medicine, Physician [address] [place], [place] [phone] Social History Tobacco Use Types Packs/Day Years [...] on filedocumented in this encounter Care Teams Windchill Administrator Relationship Specialty Start Date End Date Provider, MD Aditi [address] [place] [address] PCP - General Pediatrics 07/25/21 11/10/22 documented as of this encounter
--- OUTSIDE RECORDS SUMMARY | 2024-11-29 18:10 | XMS_ITS | Encounter Summary ---
Author Organization [facility] Address [address] [place] [address] Phone Care Team Providers Care Boxing Trainer Name Role Phone Provider, Aditi LOPEZ Primary Care Provider [phone] Encounter Details Date Type Department Care Team (Late st Contact Info) Description 02/15/2016 Documentation [facility] [place] [address] [place] [address] Family Medicine, Physician [address] [place] [phone] Social History Tobacco Use Types Packs/Day Years [...] on filedocumented in this encounter Care Teams Boxing Trainer Relationship Specialty Start Date End Date Provider, MD Aditi [address] [place] [address] PCP - General Pediatrics 07/25/21 11/10/22 documented as of this encounter
--- OUTSIDE RECORDS SUMMARY | 2024-11-29 18:10 | XMS_ITS | Encounter Summary ---
Author Organization [facility] Address [address] [place], [place] [address] Phone Care Team Providers Care Bead Machine Operator Name Role Phone Provider, Aditi LOPEZ Primary Care Provider [phone] Encounter Details Date Type Department Care Team (Late st Contact Info) Description 05/03/2014 Documentation [facility] [place] [address] [place] [address] Family Medicine, Physician [address] [place], [place] [phone] Social History Tobacco Use Types Packs/Day Years [...] on filedocumented in this encounter Care Teams Bead Machine Operator Relationship Specialty Start Date End Date Provider, MD Aditi [address] [place] [phone] PCP - General Pediatrics 07/25/21 11/10/22 documented as of this encounter
--- OUTSIDE RECORDS SUMMARY | 2024-11-29 18:11 | XMS_ITS | Encounter Summary ---
Author Organization [facility] Address [address] [place], [place] [id number] Phone Care Team Providers Care Mailroom Associate Name Role Phone Provider, Aditi LOPEZ Primary Care Provider [phone] Encounter Details Date Type Department Care Team (Late st Contact Info) Description 05/31/2012 Documentation [facility] [place] [address] [place] [address] Family Medicine, Physician [address] [place], [place] [phone] Social History Tobacco Use Types Packs/Day Years [...] on filedocumented in this encounter Care Teams Mailroom Associate Relationship Specialty Start Date End Date Provider, MD Aditi [address] [place] [phone] PCP - General Pediatrics 07/25/21 11/10/22 documented as of this encounter
--- OUTSIDE RECORDS SUMMARY | 2024-11-29 18:11 | XMS_ITS | Encounter Summary ---
Author Organization [facility] Address [address] [place], [place] [phone] Phone Care Team Providers Care House Wirer Helper Name Role Phone Provider, Aditi LOPEZ Primary Care Provider [phone] Encounter Details Date Type Department Care Team (Late st Contact Info) Description 05/31/2012 Documentation [facility] [place] Family Medicine [address] [place] [address] Family Medicine, Physician [address] [place], [place] [phone] Social History Tobacco Use Types Packs/Day Years [...] on filedocumented in this encounter Care Teams House Wirer Helper Relationship Specialty Start Date End Date Provider, MD Aditi [address] [place] [phone] PCP - General Pediatrics 07/25/21 11/10/22 documented as of this encounter
--- OUTSIDE RECORDS SUMMARY | 2024-11-29 18:11 | XMS_ITS | Encounter Summary ---
Author Organization [facility] Address [address] [place] [address] Phone Care Team Providers Care Water Plant Maintenance Mechanic Name Role Phone Provider, Aditi LOPEZ Primary Care Provider [phone] Encounter Details Date Type Department Care Team (Late st Contact Info) Description 03/19/2017 Conversion Encounter [facility] [place] [address] [place] [address] Social History Tobacco Use Types [...] on filedocumented in this encounter Care Teams Water Plant Maintenance Mechanic Relationship Specialty Start Date End Date Provider, MD Aditi [address] [place] [address] PCP - General Pediatrics 07/25/21 11/10/22 documented as of this encounter
== END 2024-11-29 15:41 | disposition home or self-care (01) ==
LOC: HO.HWSM 15:16
PROVIDERS: Visit Provider Advanced Practice Midwife
DX: Z30.431 Encounter for routine checking of intrauterine contraceptive device (principal); Z30.09 Encounter for other general counseling and advice on contraception; N83.209 Unspecified ovarian cyst, unspecified side
CPT/HCPCS: 99213

== ENCOUNTER → 2024-11-29 15:16 | Outpatient (BNVA) | payer MEDICAID, SELFPAY | PROVIDERS: Visit Provider Advanced Practice Midwife | DX: Z30.431 Encounter for routine checking of intrauterine contraceptive device (principal); N83.209 Unspecified ovarian cyst, unspecified side; Z30.09 Encounter for other general counseling and advice on contraception | CPT/HCPCS: 99212 ==

== ENCOUNTER 2025-01-30 11:38 | Outpatient (REF) | payer SELFPAY ==
--- NOTE | ~2025-01-30 | US_ITS ---
CLINICAL HISTORY: Z30.09 - Encounter for other general counseling and advice on contraception --- Additional Notes or Special Instructions: Follow-up on previous ultrasound... US pelvis transabdominal and transvaginal with color Doppler Comparison: Priors not available for comparison at the time of this interpretation Findings: Transabdominal scanning performed for overall anatomy. Transvaginal scanning performed for additional detail. LMP: Patient has IUD Anteverted uterus, normal size and echotexture, measuring 9.7 x 3.3 x 4.7 cm. Well defined endometrium, measuring 5.4 mm in thickness. The horizontal and vertical limbs of the IUD are well postioned within the endometrial cavity. Equivocal discontinuity within the horizontal portion of the IUD. Noncontrast MRI may be of further diagnostic value.. The right ovary measures, 3.5 x 2.3 x 2.6 cm. Follicular activity present. Hemorrhagic cyst right ovary measuring 1.6 x 1.0 x 1.5 cm.Normal color doppler of the right ovary. The left ovary measures, 3.2 x 2.2 x 2.1 cm. Normal sonographic appearance left ovary. Normal color Doppler of the left ovary. No adnexal masses or fluid collections. No free fluid Impression: 1. Uterus normal size and position. 2. The horizontal and vertical limbs of the IUD well positioned in the endomertial cavity. The technologist documented that there may be discontinuity within the horizontal portion of the IUD. Noncontrast MRI of the pelvis may be of further diagnostic value. 3. Hemorrhagic cyst right ovary 4. Prior studies were not available for comparison at the time of interpretation addendum report will be issued once available This document has been electronically signed by: Sandro Miller MD on 01/31/2025 12:10:14
--- OUTSIDE RECORDS SUMMARY | 2025-01-30 12:29 | XMS_ITS | Encounter Summary ---
Author Organization [facility] Address [address] [place], [place] [phone] Phone Care Team Providers Care Clinical Administrative Coordinator Name Role Phone Provider, Aditi LOPEZ Primary Care Provider [phone] Encounter Details Date Type Department Care Team (Late st Contact Info) Description 04/27/2013 Documentation [place] [facility] [place] [address] [place] [address] Family Medicine, Physician [address] [place] [phone] Social History Tobacco Use Types Packs/Day Years [...] on filedocumented in this encounter Care Teams Clinical Administrative Coordinator Relationship Specialty Start Date End Date Provider, MD Aditi [address] [place] [phone] PCP - General Pediatrics 07/25/21 11/10/22 documented as of this encounter
== END 2025-01-30 11:39 | disposition home or self-care (01) ==
LOC: HO.US 11:38
PROVIDERS: Visit Provider Advanced Practice Midwife
DX: Z30.431 Encounter for routine checking of intrauterine contraceptive device (principal); N83.209 Unspecified ovarian cyst, unspecified side
CPT/HCPCS: 76830; 76856

== ENCOUNTER → 2025-01-30 11:40 | Outpatient (BNV) | payer OTHER, SELFPAY | PROVIDERS: Visit Provider Radiology Diagnostic Radiology | DX: N83.291 Other ovarian cyst, right side (principal) | CPT/HCPCS: 76830; 76856 ==

== ENCOUNTER 2025-02-15 14:17 | Outpatient (AMB) | payer OTHER, SELFPAY ==
--- NOTE | 2025-02-15 14:12 | A.OFFVIS_ITS ---
Intake Visit Reasons: ultrasound results (Iman PT) Manager Of Procurement: Manager Of Procurement Present Allergies No Known Allergies (No Known Allergies*) Allergy (Verified 09/06/24 13:16) Is last menstrual period known: Yes HPI Comments Details: Tele Health Video Visit Total time I personally spent on visit and management today: 20 minutes. Time spent included review of pertinent office notes in the electronic health record; review of laboratory and imaging results; review of personal family medical history; discussing diagnosis and plan of care with the patient; documenting the encounter in the EMR. Patient presents to discuss: Ultrasound findings follow up on right ovarian cyst, IUD surveillance. Previously seen to have her IUD removed and strings were not found IUD was not able to be removed at that visit to would still like to have her IUD removed at this time she occasionally has like cramping on right side. PFSH Family History (Updated 09/06/24 @ 13:58 by Iman Fernandez CNM) Other IUD check up Social History (Reviewed 09/06/24 @ 13:17 by Isaac Zuluaga [facility]) Alcohol intake: current Alcohol intake frequency: holidays/special occasions only Gender identity: Female Female Reproductive History Menstrual Age of Menarche: 12 Review of Systems Const All systems reviewed & are unremarkable except as noted in HPI and below Endo Reports no additional complaints Physical Exam Const General: cooperative, healthy appearing and no acute distress Psych Appearance: well kempt Attitude: cooperative Thought process: Normal thought process present Telehealth Telehealth Telehealth Platform: [employer] Location of provider rendering services: practice address Location of patient: address on file Patient Identification confirmed using: Name, : Yes Telehealth method: video Patient verbally consented to treatment: Yes Patient verbally consented to billing insurance company: Yes Patient informed of any privacy concerns related to visit: Yes Results Reviewed Results Reviewed: [address] [address] Ultrasound Report Signed Patient: Rosey Huntley MR#: [id number] : 2000 Acct:[id number] Age/Sex: 24 / F ADM Date: 01/30/25 Loc: HO. Attending Dr: Iman Fernandez CNM Ordering Physician: Iman Fernandez CNM Date of Service: 01/30/25 Procedure(s): US pelvic and transvaginal Accession Number(s): [id number] cc: LortonIman Laguna CNM~ CLINICAL HISTORY: Z30.09 - Encounter for other general counseling and advice on contraception --- Additional Notes or Special Instructions: Follow-up on previous ultrasound... US pelvis transabdominal and transvaginal with color Doppler Comparison: Priors not available for comparison at the time of this interpretation Findings: Transabdominal scanning performed for overall anatomy. Transvaginal scanning performed for additional detail. LMP: Patient has IUD Anteverted uterus, normal size and echotexture, measuring 9.7 x 3.3 x 4.7 cm. Well defined endometrium, measuring 5.4 mm in thickness. The horizontal and vertical limbs of the IUD are well postioned within the endometrial cavity. Equivocal discontinuity within the horizontal portion of the IUD. Noncontrast MRI may be of further diagnostic value.. The right ovary measures, 3.5 x 2.3 x 2.6 cm. Follicular activity present. Hemorrhagic cyst right ovary measuring 1.6 x 1.0 x 1.5 cm.Normal color doppler of the right ovary. The left ovary measures, 3.2 x 2.2 x 2.1 cm. Normal sonographic appearance left ovary. Normal color Doppler of the left ovary. No adnexal masses or fluid collections. No free fluid Impression: 1. Uterus normal size and position. 2. The horizontal and vertical limbs of the IUD well positioned in the endomertial cavity. The technologist documented that there may be discontinuity within the horizontal portion of the IUD. Noncontrast MRI of the pelvis may be of further diagnostic value. 3. Hemorrhagic cyst right ovary 4. Prior studies were not available for comparison at the time of interpretation addendum report will be issued once available This document has been electronically signed by: Sandro Miller MD on 01/31/2025 12:10:14 Dictated By: Sandro Miller MD Signed By: <Electronically signed by Sandro Miller MD in OV> 01/31/25 1211 DD/ 1210 TD/TT: 01/31/25 1210 Counter Top Assembler: Assessment & Plan Assessment & Plan (1) Hemorrhagic cyst of right ovary: Code(s): N83.201 - Unspecified ovarian cyst, right side Plan: Advised to call if there is any increase in pelvic pain on the right side. Ovarian cyst decreased in size from last imaging, most cysts are benign in resolve on their own. (2) IUD surveillance: Code(s): Z30.431 - Encounter for routine checking of intrauterine contraceptive device Plan: Discussed ultrasound findings- Impression: 1. Uterus normal size and position. 2. The horizontal and vertical limbs of the IUD well positioned in the endomertial cavity. The technologist documented that there may be discontinuity within the horizontal portion of the IUD. Noncontrast MRI of the pelvis may be of further diagnostic value. 3. Hemorrhagic cyst right ovary 4. Prior studies were not available for comparison at the time of interpretation addendum report will be issued once available IUD horizontal plane may be disrupted, recommended further evaluation with the MRI or consider removal- is what she desires. Option of remove in office preferred. Patient aware that if IUD is not removed intact or easily in the office it would be recommended to have removed with a hysteroscopy procedure. The patient expressed understanding and agreement with the plan of care. All of her questions and concerns were addressed to the best of my ability. Plan Appointment to be scheduled for IUD removal. Consider other options for control if indicated at that time. The patient expressed understanding and agreement with the plan of care. All of her questions and concerns were addressed to the best of my ability. This note is constructed using voice recognition software. While every effort has been made to ensure accuracy, psychological examiner errors may have been included. Coding Level of Care Code Tele Est Pt Level 3 (30649) Diagnoses Hemorrhagic cyst of right ovary N83.201 IUD surveillance Z30.431
--- OUTSIDE RECORDS SUMMARY | 2025-02-15 14:58 | XMS_ITS | Encounter Summary ---
Author Organization [facility] Address [address] [place], [place] [address] Phone Care Team Providers Care Quality Officer Name Role Phone Provider, Aditi LOPEZ Primary Care Provider [phone] Encounter Details Date Type Department Care Team (Late st Contact Info) Description 04/27/2013 Documentation [facility] [place] [address] [place] [address] Family Medicine, Physician [address] [place], [place] [phone] Social History Tobacco Use Types Packs/Day Years [...] on filedocumented in this encounter Care Teams Quality Officer Relationship Specialty Start Date End Date Provider, MD Aditi [address] [place] [phone] PCP - General Pediatrics 07/25/21 11/10/22 documented as of this encounter
== END 2025-02-15 15:13 | disposition home or self-care (01) ==
LOC: HO.HWS 14:17
PROVIDERS: Visit Provider Advanced Practice Midwife
DX: N83.201 Unspecified ovarian cyst, right side (principal); Z30.431 Encounter for routine checking of intrauterine contraceptive device
CPT/HCPCS: 99213

== ENCOUNTER 2025-02-21 11:11 | Outpatient (AMB) | payer OTHER, SELFPAY ==
--- NOTE | 2025-02-21 11:13 | MHC.OFFVIS ---
Vital Signs 02/21/25 11:14 Height 5 ft 1 in Weight 134 lb BMI 25.3 BP 98/60 Blood Pressure Location Lt brachial Position Sitting Intake Visit Reasons: Iud removal (30 mins per BM) Allergies No Known Allergies (No Known Allergies*) Allergy (Verified 09/06/24 13:16) HPI Comments Details: Patient is here today for a follow up pelvic ultrasound, history of a septated right ovarian cyst. She denies any pelvic pain. Currently not sexually active. UPT is negative. Previously seen by provider Iman Fernandez CNM. PFSH Family History Other IUD check up Social History Alcohol intake: current Alcohol intake frequency: holidays/special occasions only Gender identity: Female Female Reproductive History Menstrual Age of Menarche: 12 control method: progestin IUCD Total pregnancies: 1 Full term: 1 Number of Living Children: 1 Date of last pap smear: 02/10/23 History of abnormal pap smear: No Review of Systems Const All systems reviewed & are unremarkable except as noted in HPI and below Physical Exam Vital Signs: Last Vital Signs BP 98/60 02/21/25 11:14 BMI result Body Mass Index 25.3 Const General: cooperative, healthy appearing and no acute distress Orientation/consciousness: patient oriented x3 GI Inspection: Yes normal to inspection Palpation (GI): Soft to palpation and Other GI palpation findings present (Nontender) Rectal Exam - Female: visual inspection normal General: Yes bladder normal to palpation External Female Exam: normal appearance of the urethra Speculum Exam - Vagina: normal appearance of the vagina, normal palpation and normal vaginal discharge Speculum Exam - Cervix: normal appearance of the cervix and normal palpation Bimanual exam- vagina & uterus: normal bimanual exam, normal palpation, uterine size normal, bladder normal to palpation, normal palpation, uterine shape normal and non-tender Bimanual Exam- Adnexa, other: normal adnexae Neuro General: patient oriented x3 Results AMB Test Urine AMB Test Urine Negative Last Edit by Adamaris Purdy LPN on 02/21/25 11:27 Results Reviewed Results Reviewed: [address] [address] Ultrasound Report Signed Patient: Rosey Huntley MR#: [id number] : 2000 Acct:[id number] Age/Sex: 24 / F ADM Date: 01/30/25 Loc: HO.US Attending Dr: Iman Fernandez CNM Ordering Physician: Iman Fernandez CNM Date of Service: 01/30/25 Procedure(s): US pelvic and transvaginal Accession Number(s): [id number] cc: Iman Fernandez CNM~ CLINICAL HISTORY: Z30.09 - Encounter for other general counseling and advice on contraception --- Additional Notes or Special Instructions: Follow-up on previous ultrasound... US pelvis transabdominal and transvaginal with color Doppler Comparison: Priors not available for comparison at the time of this interpretation Findings: Transabdominal scanning performed for overall anatomy. Transvaginal scanning performed for additional detail. LMP: Patient has IUD Anteverted uterus, normal size and echotexture, measuring 9.7 x 3.3 x 4.7 cm. Well defined endometrium, measuring 5.4 mm in thickness. The horizontal and vertical limbs of the IUD are well postioned within the endometrial cavity. Equivocal discontinuity within the horizontal portion of the IUD. Noncontrast MRI may be of further diagnostic value.. The right ovary measures, 3.5 x 2.3 x 2.6 cm. Follicular activity present. Hemorrhagic cyst right ovary measuring 1.6 x 1.0 x 1.5 cm.Normal color doppler of the right ovary. The left ovary measures, 3.2 x 2.2 x 2.1 cm. Normal sonographic appearance left ovary. Normal color Doppler of the left ovary. No adnexal masses or fluid collections. No free fluid Impression: 1. Uterus normal size and position. 2. The horizontal and vertical limbs of the IUD well positioned in the endomertial cavity. The technologist documented that there may be discontinuity within the horizontal portion of the IUD. Noncontrast MRI of the pelvis may be of further diagnostic value. 3. Hemorrhagic cyst right ovary 4. Prior studies were not available for comparison at the time of interpretation addendum report will be issued once available This document has been electronically signed by: Sandro Miller MD on 01/31/2025 12:10:14 Dictated By: Sandro Miller MD Signed By: <Electronically signed by Sandro Miller MD in OV> 01/31/25 1211 DD/ 1210 TD/TT: 01/31/25 1210 Sales And Service Change Leader: Assessment & Plan Assessment & Plan (1) Hemorrhagic cyst of right ovary: Code(s): N83.201 - Unspecified ovarian cyst, right side Plan: Pelvic warnings and when to call for follow up reviewed. The patient expressed understanding and agreement with the plan of care. All of her questions and concerns were addressed to the best of my ability. (2) Encounter to discuss test results: Code(s): Z71.2 - Person consulting for explanation of examination or test findings Plan Discussed: Impression: 1. Uterus normal size and position. 2. The horizontal and vertical limbs of the IUD well positioned in the endomertial cavity. The technologist documented that there may be discontinuity within the horizontal portion of the IUD. Noncontrast MRI of the pelvis may be of further diagnostic value. 3. Hemorrhagic cyst right ovary 4. Prior studies were not available for comparison at the time of interpretation addendum report will be issued once available Counseled re: IUD follow up w/MR, IUD removal/replacement if indicated. Plan MR of pelvis.. Follow up MR results. The patient expressed understanding and agreement with the plan of care. All of her questions and concerns were addressed to the best of my ability. This note is constructed using voice recognition software. While every effort has been made to ensure accuracy, process coach errors may have been included. Coding Level of Care Code Est Pt Level 3 (84118) Diagnoses Hemorrhagic cyst of right ovary N83.201 Encounter to discuss test results Z71.2
[2025-02-21 11:14] VITALS: BP 98/60; BMI 25.3
--- OUTSIDE RECORDS SUMMARY | 2025-02-21 12:26 | XMS_ITS | Encounter Summary ---
Author Organization [facility] Address [address] [place], [place] [address] Phone Care Team Providers Care Size Mixer Name Role Phone Provider, Aditi LOPEZ Primary Care Provider [phone] Encounter Details Date Type Department Care Team (Late st Contact Info) Description 04/27/2013 Documentation [facility] [place] [address] [place] [address] Family Medicine, Physician [address], [place] [phone] Social History Tobacco Use Types Packs/Day Years [...] on filedocumented in this encounter Care Teams Size Mixer Relationship Specialty Start Date End Date Provider, MD Aditi [address] [place] [phone] PCP - General Pediatrics 07/25/21 11/10/22 documented as of this encounter
== END 2025-02-21 12:12 | disposition home or self-care (01) ==
LOC: HO.HWS 11:12
PROVIDERS: Visit Provider Advanced Practice Midwife
DX: N83.201 Unspecified ovarian cyst, right side (principal); Z71.2 Person consulting for explanation of examination or test findings
CPT/HCPCS: 99213

== ENCOUNTER → 2025-02-21 11:11 | Outpatient (BNVA) | payer OTHER, SELFPAY | PROVIDERS: Visit Provider Advanced Practice Midwife | DX: Z71.2 Person consulting for explanation of examination or test findings (principal); N83.201 Unspecified ovarian cyst, right side | CPT/HCPCS: 99212 ==